=== PATIENT | female | born 1990 | race Caucasian/White ===

== ENCOUNTER 2017-10-16 08:21 | Outpatient (CLI) | payer SELFPAY ==
[2017-10-16] MEDS ORDERED: ACETAMINOPHEN 325 MG TABLET ONE (09:32)
[2017-10-16 09:49] LABS: APPEARANCE,URINE SLIGHTLY-CLOUDY; BILIRUBIN,URINE NEGATIVE (NEGATIVE); GLUCOSE, URINE NEGATIVE (NEGATIVE); KETONES,URINE NEGATIVE (NEGATIVE); LEUKOCYTE ESTERASE,URINE SMALL (NEGATIVE); NITRITE,URINE NEGATIVE (NEGATIVE); PROTEIN,URINE NEGATIVE (NEGATIVE)
[2017-10-16 09:50] LABS: COLOR,URINE YELLOW
[2017-10-16 09:52] LABS: URINE AMPHETAMINES SCREEN NEGATIVE; URINE BARBITURATES SCREEN NEGATIVE; URINE BENZODIAZEPINES SCREEN NEGATIVE; URINE COCAINE SCREEN NEGATIVE; URINE MARIJUANA (THC) SCREEN NEGATIVE; URINE METHADONE SCREEN NEGATIVE; URINE PHENCYCLIDINE SCREEN NEGATIVE
[2017-10-16] MEDS ORDERED: ACETAMINOPHEN 325 MG TABLET PO ONE (10:00)
== END 2017-10-16 10:07 | disposition home or self-care (01) ==
LOC: LC 08:21
PROVIDERS: ATTEND Obstetrics & Gynecology
PROC: 4A1HXCZ Monitoring of Products of Conception, Cardiac Rate, External Approach (ICD-10-PCS; principal; 2017-10-16)
DX: O47.03 False labor before 37 completed weeks of gestation, third trimester (principal)
CPT/HCPCS: 80307; 81001

== ENCOUNTER 2017-12-13 08:48 | Inpatient (IN) | payer SELFPAY ==
[2017-12-12 12:44] LABS: ABSOLUTE BASOPHILS # (AUTO) 0.1 10^3/uL (0.0-0.2); ABSOLUTE LYMPHOCYTES (AUTO) 2.1 10^3/uL (0.5-4.7); ABSOLUTE MONOCYTES (AUTO) 0.6 10^3/uL (0.1-1.4); ABSOLUTE NEUT (AUTO) 5.9 10^3/uL (1.7-8.2); BASOPHILS % (AUTO) 0.8 % (0-2); EOSINOPHILS % (AUTO) 0.4 % (0-6); HEMATOCRIT 35.7 % (36.0-47.0); HEMOGLOBIN 12.1 g/dL (12.0-15.5); LYMPHOCYTES % (AUTO) 24.3 % (13-45); MEAN CORPUSCULAR HEMOGLOBIN 27.9 pg (27.0-33.4); MEAN CORPUSCULAR HGB CONC 33.8 g/dL (32.0-36.0); MEAN CORPUSCULAR VOLUME 82 fl (80-97); MONOCYTES % (AUTO) 6.7 % (3-13); PLATELET COUNT 293 10^3/uL (150-450); RED BLOOD COUNT 4.34 10^6/uL (3.72-5.28); RED CELL DISTRIBUTION WIDTH 14.7 % (11.5-14.0); SEGMENTED NEUTROPHILS % (AUTO) 67.8 % (42-78); TOTAL CELLS COUNTED % (AUTO) 100 %; WHITE BLOOD COUNT 8.7 10^3/uL (4.0-10.5)
[2017-12-12 12:52] LABS: APPEARANCE,URINE CLEAR; BILIRUBIN,URINE NEGATIVE (NEGATIVE); COLOR,URINE YELLOW; GLUCOSE, URINE NEGATIVE (NEGATIVE); KETONES,URINE NEGATIVE (NEGATIVE); LEUKOCYTE ESTERASE,URINE NEGATIVE (NEGATIVE); NITRITE,URINE NEGATIVE (NEGATIVE); PROTEIN,URINE NEGATIVE (NEGATIVE); URINE SPECIFIC GRAVITY 1.011; UROBILINOGEN,URINE NEGATIVE mg/dL (<2.0)
[2017-12-12 14:15] LABS: URINE AMPHETAMINES SCREEN NEGATIVE; URINE BARBITURATES SCREEN NEGATIVE; URINE BENZODIAZEPINES SCREEN NEGATIVE; URINE COCAINE SCREEN NEGATIVE; URINE MARIJUANA (THC) SCREEN NEGATIVE; URINE METHADONE SCREEN NEGATIVE; URINE PHENCYCLIDINE SCREEN NEGATIVE
[~2017-12-13 08:48] MED LIST: CEFAZOLIN 2 GM/D5W RTU 2 GM/50 ML RTUPB IV PRN; LACTATED RINGERS 1000 ML IV PRN; LIDOCAINE 0.5% INJ-PF (5 MG/ML) 50 ML SDV SUBCUT PRN; RINGERS SOLUTION,LACTATED 1,500 ML IV ONE
[2017-12-13] MEDS ORDERED: CEFAZOLIN 1 GM/D5W RTU 2 GM/100 ML RTUPB IV ONE (11:06)
[2017-12-13] MEDS ORDERED: EPHEDRINE SULFATE INJ 50 MG/1 ML AMPULE ONE (11:12)
[2017-12-13] MEDS ORDERED: BUPIVACAINE HCL/DEX-WATER/PF 15 MG/2 ML AMPULE ONE (11:12)
[2017-12-13] MEDS ORDERED: ONDANSETRON HCL INJ/PF 4 MG/2 ML SDV ONE (11:12)
[2017-12-13] MEDS ORDERED: MIDAZOLAM 2 MG/2 ML INJ ONE (11:13)
[2017-12-13] MEDS ORDERED: OXYTOCIN 10 UNIT/ML VIAL ONE (11:13)
[2017-12-13] MEDS ORDERED: FENTANYL CITRATE INJ/PF 100 MCG/2 ML AMPUL ONE (11:13)
[2017-12-13] MEDS ORDERED: MEASLES,MUMPS&RUBELLA VACC/PF 0.5 ML VIAL SUBCUT PRN (11:19)
[2017-12-13] MEDS ORDERED: PROMETHAZINE HCL INJ 25 MG/1 ML VIAL IV PRN (11:19)
[2017-12-13] MEDS ORDERED: ACETAMINOPHEN 325 MG TABLET PO PRN (11:19)
[2017-12-13] MEDS ORDERED: OXYCODONE-ACETAMINOPHEN 5-325 MG TABLET PO PRN ×2 (11:19)
[2017-12-13] MEDS ORDERED: RINGERS SOLUTION,LACTATED 1,000 ML IV PRN (11:19)
[2017-12-13] MEDS ORDERED: SIMETHICONE 80 MG TAB.CHEW PO PRN (11:19)
[2017-12-13] MEDS ORDERED: HYDROMORPHONE HCL INJ/PF 2 MG/ML AMPULE IV PRN (11:19)
[2017-12-13] MEDS ORDERED: OXYTOCIN/NORMAL SALINE 20 UNIT/1,000 ML RTUINJ IV PRN (11:19)
[2017-12-13] MEDS ORDERED: ACETAMINOPHEN 1,000 MG/100 ML RTUPB IV PRN (11:19)
[2017-12-13] MEDS ORDERED: DIPH/PERTUSS(ACELL)/TETANUS VAC/PF 0.5 ML SYR (>=10YO) IM PRN (11:19)
[2017-12-13] MEDS ORDERED: MEPERIDINE HCL/PF INJ 25 MG/1 ML DISP.SYRIN IV PRN (11:47)
[2017-12-13] MEDS ORDERED: DIPHENHYDRAMINE HCL 50 MG/ML VIAL IV PRN (11:47)
[2017-12-13] MEDS ORDERED: FENTANYL CITRATE INJ/PF 100 MCG/2 ML AMPUL IV PRN ×3 (11:47)
[2017-12-13] MEDS ORDERED: ONDANSETRON HCL INJ/PF 4 MG/2 ML SDV IV PRN (11:47)
--- NOTE | 2017-12-13 12:44 | PDOC DELIVERY SUMMARY ---
Delivery Summary - Maternal Hx : I HAYDEN: 12/17/17 Ruptured Membranes: AROM Time of Rupture: 11:52 Fluids: Clear - Delivery Presentation: Breech Heart Rate Monitoring: Done Pre-Operatively Support Person Present: Yes Location: OR : Scheduled Placenta: Within Normal Limits Delivery of Placenta Date: 12/13/17 Delivery of Placenta Time: 11:55 - Medications Type of Anesthesia:: Spinal - Infant Assess and Care Baby 1 Female Delivery of Infant Date: 12/13/17 Delivery of Infant Time: 11:54 at 1 minute: 8 at 5 minutes: 9 Preprinted Number On Band: [id number] Infant Skin to Skin: Yes Skin to Skin (Mins): 4 To Nursery At: 12:04 Mode of Transport: Bassinet Infant Delivery Weight: 3,815 Infant Delivery Length: 20.75 in - Delivery Personnel Microbiology Teacher: RAPHAEL PRYOR Nursekaial RN: WILMA COLLINS
--- NOTE | 2017-12-13 12:59 | Operative Report ---
Operative Report DATE OF SURGERY: 12/13/17 PREOPERATIVE DIAGNOSIS: 1. Intrauterine at 39 weeks. 2. Breech position. 3. Bicornuate uterus. 4. Maternal obesity. 5. Anemia POSTOPERATIVE DIAGNOSIS: Arcuate uterus OPERATION: Primary low transverse section SURGEON: HALEY OSBORN 1ST MOHEL: PRASHANT GUILLEN ANESTHESIA: Spinal TISSUE REMOVED OR ALTERED: Placenta COMPLICATIONS: Large EBL ESTIMATED BLOOD LOSS: 2450 mL INTRAOPERATIVE FINDINGS: Arcuate uterus PROCEDURE: The patient was taken to the operating room where spinal anesthesia was administered without difficulty. The patient was then prepared and draped in the normal sterile fashion in the supine position with a leftward tilt. Prior to draping, a Palacios catheter was placed in the patient's bladder. Pfannenstiel skin incision was made scalpel and carried through to the underlying layer of fascia with the Bovie. The fascia was then incised in the midline and the incision extended laterally with the Luz scissors. The superior aspect of the fascial incision was then grasped with Suma clamps, elevated, and the underlying rectus muscles dissected off both bluntly and sharply. Attention was then turned to the inferior aspect of the incision, which in similar fashion , was grasped, tented up with Suma clamps and the rectus muscles dissected off both bluntly and sharply. The rectus muscles were then in the midline and the peritoneum was identified, tented up, and entered sharply with Metzenbaum scissors. Peritoneal incision was then extended superiorly and inferiorly with good visualization of the bladder. The bladder blade was then inserted and the vesicouterine peritoneum identified, grasped with pickups and entered sharply with the Metzenbaum scissors. This incision was then extended laterally and the bladder flap was created digitally. Bladder blade was then reinserted and the lower uterine segment incised in a transverse fashion with scalpel. Several sinuses on the uterus were transected with the scalpel which resulted in a large amount of brisk bleeding. The uterine incision was then extended laterally with bandage scissors, as well as digitally. The bladder blade was then removed and the 's feet could be seen. The lower extremities were then removed from the uterine cavity as well as the body. The bilateral arms were then extracted, which was followed by the head. The nose and mouth were then suctioned with bulb suction and the was handed off to the awaiting monitoring specialist. The placenta was then removed and the uterus was exteriorized and cleared of all clots and debris. The uterine incision was then repaired with 0 Vicryl in a running, locked fashion. A second layer using 0 chromic was used to imbricate the incision for excellent hemostasis. The bladder flap was then repaired with 3-0 Vicryl in a running fashion. The abdominal cavity was then copiously irrigated with warm normal saline. The uterus was then returned back to the abdomen and the gutters were cleared of all clots and debris. Peritoneum was closed with 2-0 Vicryl in a running fashion. The fascia was closed in a running fashion with 0 Vicryl. The subcutaneous fat layer was closed with 2-0 chromic in interrupted fashion. The skin was then closed in a subcuticular fashion with 4-0 Monocryl. The patient tolerated the procedure well. Sponge, lap, needle and instrument counts were correct 2. She received 2 g of Ancef prior to the start of the procedure. The patient was taken to the recovery room in stable condition.
[2017-12-13] MEDS ORDERED: KETOROLAC TROMETHAMINE INJ/PF 30 MG/1 ML SDV ONE (13:09)
[2017-12-13] MEDS ORDERED: ACETAMINOPHEN 1,000 MG/100 ML RTUPB IV ONE (13:09)
[2017-12-13] MEDS ORDERED: OXYTOCIN/NORMAL SALINE 20 UNIT/1,000 ML RTUINJ ONE (13:10)
[2017-12-13] MEDS ORDERED: HYDROMORPHONE HCL INJ/PF 2 MG/ML AMPULE ONE (14:07)
[2017-12-13] MEDS: KETOROLAC TROMETHAMINE INJ/PF 30 MG/1 ML SDV IV SCH ×2 (15:04→22:08)
[2017-12-13 16:28] LABS: HEMATOCRIT 27.8 % (36.0-47.0); MEAN CORPUSCULAR HEMOGLOBIN 27.3 pg (27.0-33.4); MEAN CORPUSCULAR HGB CONC 32.9 g/dL (32.0-36.0); MEAN CORPUSCULAR VOLUME 83 fl (80-97); PLATELET COUNT 262 10^3/uL (150-450); RED BLOOD COUNT 3.36 10^6/uL (3.72-5.28); RED CELL DISTRIBUTION WIDTH 14.5 % (11.5-14.0); WHITE BLOOD COUNT 14.8 10^3/uL (4.0-10.5)
[2017-12-13 16:29] LABS: HEMOGLOBIN 9.2 g/dL (12.0-15.5)
[2017-12-13] MEDS: DOCUSATE SODIUM 100 MG CAPSULE PO SCH (18:04)
[2017-12-14] MEDS: KETOROLAC TROMETHAMINE INJ/PF 30 MG/1 ML SDV IV SCH (09:18)
[2017-12-14] MEDS: DOCUSATE SODIUM 100 MG CAPSULE PO SCH ×2 (09:19→17:51)
[2017-12-14] MEDS: PRENATAL VITAMIN W DHA CAPSULE PO SCH (09:19)
[2017-12-14 09:23] LABS: HEMATOCRIT 23.9 % (36.0-47.0); HEMOGLOBIN 8.1 g/dL (12.0-15.5); MEAN CORPUSCULAR HEMOGLOBIN 27.7 pg (27.0-33.4); MEAN CORPUSCULAR HGB CONC 33.7 g/dL (32.0-36.0); MEAN CORPUSCULAR VOLUME 82 fl (80-97); PLATELET COUNT 219 10^3/uL (150-450); RED BLOOD COUNT 2.91 10^6/uL (3.72-5.28); RED CELL DISTRIBUTION WIDTH 14.2 % (11.5-14.0); WHITE BLOOD COUNT 10.3 10^3/uL (4.0-10.5)
--- NOTE | 2017-12-14 09:43 | PDOC PROGRESS REPORT ---
Subjective-OB Progress Note for:: 12/14/17 Subjective: Doing well, no c/o, + flatus, eating well, voiding, , pain under control Physical Exam (OB) Vital Signs: Temp Pulse Resp BP Pulse Ox 98.2 F 89 18 127/71 H 98 12/14/17 00:16 12/14/17 00:16 12/14/17 00:16 12/14/17 00:16 12/14/17 00:16 Intake & Output 12/13/17 12/14/17 12/15/17 06:59 06:59 06:59 Intake Total 3075 Output Total 1075 Balance 2000 Weight 104.33 kg - PIH/Pre-Eclampsia Headache: Absent Epigastric Pain: No Visual Changes: No - Dressing Removed: No - opsite noted Incision: Dressing - Lochia Lochia Amount: Small 10-25 ml Lochia Color: Rubra/Red - Abdomen Description: Soft, Round Hernia Present: No Fundal Description: Firm, Midline Fundal Height: u/u - u/2 Objective-Diagnostic Laboratory: 12/13/17 16:08 12/13/17 16:08 WBC 14.8 H RBC 3.36 L Hgb 9.2 L D Hct 27.8 L MCV 83 MCH 27.3 MCHC 32.9 RDW 14.5 H Plt Count 262 Assessment and Plan(PN) - Assessment and Plan (1) Postoperative anemia due to acute blood loss Is this a current diagnosis for this admission?: Yes (2) GBS (group B Streptococcus carrier), +RV culture, currently Is this a current diagnosis for this admission?: Yes (3) Primary for Breech Is this a current diagnosis for this admission?: Yes - Time Spent with Patient Time with patient: Less than 15 minutes Medications reviewed and adjusted accordingly: Yes - Disposition Anticipated Discharge: Home Within: within 48 hours
[2017-12-14] MEDS: IBUPROFEN 800 MG TABLET PO SCH ×3 (12:20→23:31)
[2017-12-14] MEDS ORDERED: IRON SUCROSE COMPLEX INJ/PF 100 MG/5 ML SDV IV ONE (13:00)
[2017-12-15] MEDS: IBUPROFEN 800 MG TABLET PO SCH ×4 (05:50→23:24)
[2017-12-15] MEDS: PRENATAL VITAMIN W DHA CAPSULE PO SCH (10:13)
[2017-12-15] MEDS: DOCUSATE SODIUM 100 MG CAPSULE PO SCH ×2 (10:13→17:42)
--- NOTE | 2017-12-15 12:36 | PDOC DISCHARGE SUMMARY ---
Final Diagnosis Discharge Date: 12/15/17 - Final Diagnosis (1) Postoperative anemia due to acute blood loss Is this a current diagnosis for this admission?: Yes (2) GBS (group B Streptococcus carrier), +RV culture, currently Is this a current diagnosis for this admission?: Yes (3) Primary for Breech Is this a current diagnosis for this admission?: Yes Discharge Data - Discharge Medication Prescriptions: Oxycodone HCl/Acetaminophen [Percocet 5-325 mg Tablet] 1 tab PO Q4HP PRN #30 tablet PRN Reason: For Pain Scale 3-5 Ibuprofen [Motrin 800 mg Tablet] 800 mg PO Q8HP PRN #30 tablet PRN Reason: Abdominal Cramping Docusate Sodium [Colace 100 mg Capsule] 100 mg PO BID #60 capsule Ferrous Sulfate [Feosol 325 mg Tablet] 325 mg PO TID #90 tablet Vit/Dha [ Multi + Dha Capsule] 1 cap PO DAILY #90 capsule Home Medications: Docusate Sodium [Colace 100 mg Capsule] 100 mg PO BID #60 capsule 12/15/17 Ferrous Sulfate [Feosol 325 mg Tablet] 325 mg PO TID #90 tablet 12/15/17 Ibuprofen [Motrin 800 mg Tablet] 800 mg PO Q8HP PRN #30 tablet 12/15/17 Oxycodone HCl/Acetaminophen [Percocet 5-325 mg Tablet] 1 tab PO Q4HP PRN #30 tablet 12/15/17 Vit/Dha [ Multi + Dha Capsule] 1 cap PO DAILY #90 capsule 12/15 Reason(s) for Admission: Ceasarean Section-Primary Procedures: Ultrasound Intrapartum Procedure(s): : Low Cervical, Transverse - Diagnosis Test Laboratory: Temp Pulse Resp BP Pulse Ox 98.0 F 84 16 124/64 98 12/15/17 10:43 12/15/17 10:43 12/15/17 10:43 12/15/17 10:43 12/15/17 10:43 12/12/17 12/12/17 12/13/17 11:20 11:26 16:08 RBC 4.34 3.36 L Hgb 12.1 9.2 L D Hct 35.7 L 27.8 L Urine Opiates Screen NEGATIVE 12/14/17 06:31 RBC 2.91 L Hgb 8.1 L Hct 23.9 L Urine Opiates Screen - Discharge information/Instructions Discharge Activity: Activity As Tolerated, Balance Activity w/Rest, No Driving, No Lifting Over 10 Pounds, Pelvic Rest, Supervised Activity, No tub bath, Walk Frequently Discharge Diet: As Tolerated, Regular Disposition: HOME, SELF-CARE Follow up with: [facility] in: 1, Weeks
[2017-12-16] MEDS: IBUPROFEN 800 MG TABLET PO SCH ×2 (06:03→11:27)
[2017-12-16] MEDS: PRENATAL VITAMIN W DHA CAPSULE PO SCH (09:44)
[2017-12-16] MEDS: DOCUSATE SODIUM 100 MG CAPSULE PO SCH (09:44)
[2017-12-16 11:38] VITALS: BP 124/64
== END 2017-12-16 12:47 | disposition home or self-care (01) | DRG 765 ==
LOC: 2S 08:48
PROVIDERS: ADMIT Obstetrics & Gynecology; ATTEND Obstetrics & Gynecology
PROC: 10D00Z1 Extraction of Products of Conception, Low, Open Approach (ICD-10-PCS; principal; 2017-12-13 11:45)
DX: O32.1XX0 Maternal care for breech presentation, not applicable or unspecified (principal); Z3A.39 39 weeks gestation of pregnancy; Z37.0 Single live birth; O99.02 Anemia complicating childbirth; D62 Acute posthemorrhagic anemia; O34.03 Maternal care for unspecified congenital malformation of uterus, third trimester; Q51.3 Bicornate uterus; O99.214 Obesity complicating childbirth; E66.9 Obesity, unspecified; O99.824 Streptococcus B carrier state complicating childbirth; Z79.899 Other long term (current) drug therapy
CPT/HCPCS: 1961; 36415; 59025; 80307; 81001; 85025; 85027; 86850; 86900; 86901; 94799; J0131; J1170; J1756; J1885; J2250; J2405; J2590; J3010; J3490; J7120

== ENCOUNTER → 2018-11-20 | Outpatient (CLI) | payer SELFPAY ==
--- NOTE | 2018-11-20 16:38 | RADIOLOGY REPORT (SQ) ---
EXAM DESCRIPTION: U/S [id number] TRNABD 1GES W/ODOP COMPLETED DATE/TIME: 11/20/2018 4:04 pm REASON FOR STUDY: Z34.81 ENCOUNTER FOR SUPRVSN OF NORMAL , FIRST TRIMESTER Z34.81 ENCOUNTE R FOR SUPRVSN OF NORMAL , FIRST TRIM COMPARISON: None. TECHNIQUE: Transabdominal static and realtime grayscale images acquired of the pelvis. Additional se lected spectral and color Doppler images recorded. All images stored on PACs. CG: Not available. CLINICAL DATES: LMP 09/10/2018, HAYDEN 06/17/2019, EGA 10 weeks 1 day LIMITATIONS: None. FINDINGS: FETUS: Single Living intrauterine . ULTRASOUND EGA: 9 weeks 2 days ULTRASOUND HAYDEN: 06/23/2019 EFW: Not applicable less than 20 weeks. CRL: 2.54 cm FHR: 178 beats per minute. SURVEY: Too early to assess. AMNIOTIC FLUID: Adequate amount. PLACENTA: Not yet developed due to early gestation. SUBCHORIONIC BLEED: Yes. SIZE OF BLEED: 1.6 x 2.2 x 0.9 cm UTERUS: Partial septate uterus with the in the left uterine horn. Heterogeneous endometri um within the right horn. CERVICAL LENGTH: 2.9 cm Closed. RIGHT ADNEXA: Normal ovary with normal vascular flow. No adnexal free fluid. No adnexal masses. LEFT ADNEXA: Normal ovary with normal vascular flow. No adnexal free fluid. No adnexal masses. FREE FLUID: Likely bicornuate uterus. OTHER: No other significant finding. IMPRESSION: 1. Living intrauterine with estimated gestational age of 10 weeks and 1 days. 2. Small subchorionic bleed occupying less than 20% of the sac circumference. 3. Partial septate uterus with in the left uterine horn. Trimester of : First trimester - 0 to 13 weeks. TECHNICAL DOCUMENTATION: JOB ID: [id number] [employer]- All Rights Reserved rev Reading location - IP/workstation name: [email or web address]
== END ==
LOC: RAD 14:34
PROVIDERS: ATTEND Midwife
DX: O34.01 Maternal care for unspecified congenital malformation of uterus, first trimester (principal); Q51.22 Partial doubling of uterus; Z3A.10 10 weeks gestation of pregnancy
CPT/HCPCS: 76801